=== PATIENT | female | born 1990 | race Caucasian/White ===

== ENCOUNTER 2018-07-13 10:25 | Emergency (ER) | payer OTHER ==
[2018-07-13 10:57] VITALS: BP 119/71
--- NOTE | 2018-07-13 11:27 | UC ---
Throat Pain/Nasal Chris HPI - HPI Summary HPI Summary: Pt with 3 weeks sinus pressure and facial fullness. pt states was given Rx doxy - completed approx 5 days ago. Pt states was feeling better, but sx return 3 days ago + dental achiness, thick green nasal secretion. no rash. + tactile fever. no cp, sob, abd pain. did not change pillowcase, linens following abx. no analgesia taken + tobacco Pt's medications reviewed not - History of Current Complaint Chief Complaint: UCGeneralIllness Stated Complaint: SINUSES Time Seen by Provider: 07/13/18 11:08 Hx Obtained From: Patient Hx Last Menstrual Period: 04/24/15 ?: No Onset/Duration: Gradual Onset Pain Intensity: 0 - Allergies/Home Medications Allergies/Adverse Reactions: Allergies Allergy/AdvReac Type Severity Reaction Status Date / Time cillins Allergy Difficulty Uncoded 07/13/18 10:53 Breathing PMH/Surg Hx/FS Hx/Imm Hx Previously Healthy: Yes - Surgical History Surgical History: Yes Surgery Procedure, [facility] and [facility] - Social History Occupation: Employed Part-time Lives: With Family Alcohol Use: None Substance Use Type: None Smoking Status (MU): Light Every Day Tobacco Smoker Type: Cigarettes Amount Used/How Often: 1carton /2weeks Have You Smoked in the Last Year: Yes - Immunization History Most Recent Influenza Vaccination: NOT YET THIS YEAR Most Recent Tetanus Shot: 12/10/15 Most Recent Pneumonia Vaccination: never Review of Systems All Other Systems Reviewed And Are Negative: Yes Constitutional: Positive: Fever - tactile Skin: Positive: Negative Eyes: Positive: Negative ENT: Positive: Nasal Discharge, Sinus Congestion, Sinus Pain/Tenderness Respiratory: Positive: Negative Physical Exam - Summary Physical Exam Summary: Vital Signs Reviewed: Yes A+Ox3, no distress Eyes: Conjunctiva Clear, LEONEL. EOM intact and full ENT: Hearing grossly normal TM fluid left, right TM wnl turbinates inflammed and boggy, + PND + TTP max sinuses R>L mmoist, uvula midline, no exudate, no erythema Neck: Positive: Supple Respiratory: Positive: No respiratory distress, No accessory muscle use + CTA throughout no w/r Cardiovascular: RRR nl s1, s2 no m/r CBT <2 sec abd soft + BS nt/nd no guarding, no distension Musculoskeletal Exam: MCALLISTER x 4 without difficulty Strength Intact, ROM Intact Neurological: Positive: Alert, + sensation throughout Psychological: Positive: Normal Response To Family Skin: Positive: no rash, no ecchymosis Triage Information Reviewed: Yes Vital Signs: Initial Vital Signs Temp 97.8 F 07/13/18 10:54 Pulse 83 07/13/18 10:54 Resp 16 07/13/18 10:54 BP 119/71 07/13/18 10:54 Pulse Ox 98 07/13/18 10:54 Throat Pain/Nasal Course/Dx - Course Course Of Treatment: Pt with 3 weeks facial pressure and fullness, pns, green discharge. pt treated with doxy - improved - sx return. exam c/w rhinosinusitis. hydrate. abx. flonase. return precaution. motrin/apap - Differential Dx/Diagnosis Provider Diagnosis: Rhinosinusitis Discharge - Sign-Out/Discharge Documenting (check all that apply): Patient Departure All imaging exams completed and their final reports reviewed: No Studies - Discharge Plan Condition: Stable Disposition: HOME Prescriptions: Albuterol HFA INHALER* [Ventolin HFA Inhaler*] 2 puff INH Q4H PRN #1 mdi PRN Reason: wheeze Azithromycin TAB* [Zithromax TAB (Z-MARI) 250 mg #6 tabs] 2 tab PO .TODAY, THEN 1 DAILY #1 mari Fluticasone NASAL SPRAY 50MCG* [Flonase NASAL SPRAY 50MCG*] 2 spray BOTH NARES DAILY #1 btl Patient Education Materials: Rhinosinusitis (ED) Referrals: Marco Perez MD [Primary Care Provider] - Additional Instructions: - Stay well hydrated. Drink plenty of non-alcoholic, non-caffinated beverages. - Alternate ibuprofen (Advil, Motrin) 600mg and Tylenol every 3 hours for pain or fever. Take with food. Do NOT take for more than 4-5 days. - These infections are spread by secretions - do NOT share eating or drinking utensils - clean items you share with other people such as cell phones, computer mouse, TV remote, computer tablets,etc. Once you have been antibiotics for 2 days, change your toothbrush and your pillowcase. - get plenty of restful sleep - humidify the air in the room where you sleep - boil water, run a hot steam shower, vaporizer, cups of water by heat register - okay to take over the counter decongestant and cough medication - use nasal spray as prescribed - contact your doctor or return with questions or concerns - Billing Disposition and Condition Condition: STABLE Disposition: Home
== END 2018-07-13 11:51 | disposition home or self-care (01) ==
LOC: UCCORT 10:25
DX: J32.9 Chronic sinusitis, unspecified (principal); Z88.0 Allergy status to penicillin; F17.210 Nicotine dependence, cigarettes, uncomplicated
CPT/HCPCS: 99212; G0463